=== PATIENT | female | born 1985 | race Hispanic/Latino ===

== ENCOUNTER 2020-06-23 22:40 | Emergency (ER) | payer OTHER ==
[2020-06-23] MEDS ORDERED: Acetaminophen 500 MG TAB ONE (22:57)
[2020-06-25 11:47] LABS: SARS-CoV-2 MS2 Positive; SARS-CoV-2 N Gene Positive; SARS-CoV-2 S Gene Positive; SARS-CoV-2 by NAA DETECTED (NotDetected); SARS-CoV-2 orf1ab Positive
== END 2020-06-23 23:14 | disposition home or self-care (01) ==
LOC: NAV ERS 22:40
DX: U07.1 COVID-19 (principal); J06.9 Acute upper respiratory infection, unspecified
CPT/HCPCS: 87635; 99284; U0003